=== PATIENT | male | born 1985 | race African-American/Black ===

== ENCOUNTER 2022-08-01 15:12 | Emergency (ER) | payer SELFPAY ==
[~2022-08-01] VITALS: Ht 170.2 cm; Wt 75.0 kg
[2022-08-01 15:16] VITALS: BP 148/104
== END 2022-08-01 20:26 | disposition left against medical advice (07) ==
LOC: ER 15:12
DX: Z53.21 Procedure and treatment not carried out due to patient leaving prior to being seen by health care provider (principal)